=== PATIENT | male | born 1975 | race Caucasian/White ===

== ENCOUNTER 2023-11-25 07:45 | Day surgery (SDC) | payer OTHER ==
[~2023-11-25] VITALS: Ht 188 cm; Wt 108.9 kg
[2023-11-25] MEDS ORDERED: fentaNYL citrate 0.05 MG/ML VIAL ONE (10:04)
[2023-11-25] MEDS ORDERED: MIDAZOLAM 5 MG/5 ML VIAL ONE (10:05)
[2023-11-25] MEDS ORDERED: LIDOCAINE 1% 500 MG/50 ML VIAL ONE (10:05)
[2023-11-25] MEDS: fentaNYL citrate 0.05 MG/ML VIAL IVP ONE (10:40)
== END 2023-11-25 11:55 | disposition home or self-care (01) ==
LOC: MDS 07:45 → MMU 07:47 → MDS 11:55
PROVIDERS: ATTEND Internal Medicine Gastroenterology
DX: B18.2 Chronic viral hepatitis C (principal); K21.9 Gastro-esophageal reflux disease without esophagitis; Z87.442 Personal history of urinary calculi; Z79.899 Other long term (current) drug therapy
CPT/HCPCS: 47000; 76942; J2001; J3010; Q0092; J2250